=== PATIENT | male | born 1950 | race Two or more races ===

== ENCOUNTER 2025-03-27 08:39 | Emergency (ER) | payer SELFPAY ==
[2025-03-27 08:58] VITALS: BP 184/105
--- NOTE | 2025-03-27 09:06 | EDRN ---
unable to get temp at triage.
[2025-03-27 09:34] LABS: Hematocrit 45.7 % (39.0-52.0); Hemoglobin 16.3 g/dL (13.0-18.0); Mean Corp Hgb Conc. 35.7 g/dL (33.0-37.0); Mean Corpuscular Volume 88.4 fL (80.0-94.0); Nucleated Red Blood Cells % 0 % (-); Platelet Count 161 10^3/uL (130-400); Red Cell Dist. Width 12.2 % (11.5-14.5)
[2025-03-27 09:49] LABS: ALT (SGPT) 39 U/L (0-50); AST (SGOT) 27 U/L (17-59); Albumin 4.6 g/dl (3.5-5.0); Alkaline Phosphatase 111 U/L (38-126); Blood Urea Nitrogen 21 mg/dl (9-20); Calcium 9.7 mg/dl (8.4-10.2); Carbon Dioxide 20 mmol/L (22-30); Chloride 104 mmol/L (98-107); Glucose 272 mg/dl (70-99); Potassium 4.1 mmol/L (3.5-5.1); Sodium 136 mmol/L (135-145); Total Protein 6.9 g/dl (6.3-8.2); eGFR > 60.00
[2025-03-27] MEDS: ZOFRAN 4 MG IV (10:24)
[2025-03-27] MEDS: MORPHINE SULFATE 4 MG IV (10:24)
[2025-03-27 11:24] LABS: Urine Character Clear (Clear)
[2025-03-27 11:40] LABS: Urine Red Blood Cell 50-60 /HPF (0-2)
[2025-03-27] MEDS: TORADOL 15 MG IV (12:36)
--- NOTE | 2025-03-27 17:47 | ED.GENMED ---
History of Present Illness
General
Chief Complaint: Abdominal Pain
Time Seen by Provider: 03/27/25 10:03
History of Present Illness
History of Present Illness:
74-year-old male brought to the ER by his for evaluation of severe pain and nausea. Patient reported severe pain radiating across his lower back and into his anterior abdomen this morning. He denies any prior history of similar discomfort.
He denies any dysuria but did have hematuria and spontaneously passed a stone last week while voiding. He is under the care of a urologist downtown in [place]-he has a referral for an outpatient ultrasound of his scrotum to be performed this
week along with a follow-up appointment scheduled in May. He does have a prior history of BPH and kidney stones. He is on Flomax daily. He took Turkish pain reliever this morning without any improvement in symptoms and subsequent
vomiting. Patient reports his pain to be severe and persistent at time of evaluation.
Phy Exam
Physical Exam
Physical Exam:
Patient is awake, alert, appears uncomfortable, mucous membranes moist, conjunctiva pink, heart regular rate and rhythm no murmurs or ectopy, lungs are clear to auscultation without wheezes rales or rhonchi, abdomen is soft and nontender on
palpation, there is large swelling noted to the left hemiscrotum and left inguinal region which is firm to touch, placing patient in supine position the amount of swelling improved significantly, there is no overlying erythema, positive left CVA
tenderness on exam, extremities without edema, GCS is 15
Course
Orders/Labs/Results
Orders:
Orders
03/27/25 09:20
Complete Blood Count/With Diff Urgent
Comprehensive Metabolic Panel Urgent
03/27/25 10:15
Morphine Sulfate 4 mg IV NOW STA
Ondansetron Injectable [Zofran] 4 mg IV NOW STA
03/27/25 10:17
CT Abd/pel Without Iv Or Oral Urgent
Comment:
Reason For Exam: L flank pain, also large L inguinal hernia
03/27/25 10:32
Urinalysis Reflex To Culture Urgent
Date Specimen was Collected: 03/27/25
Time Specimen was Collected: 10:17
Urine Microscopic Reflex Cult Urgent
Urine Culture Urgent
MARGOTH Source: U
Specimen Description:
Date Specimen was Collected: 03/27/25
Time Specimen was Collected: 10:17
03/27/25 12:13
Ketorolac [Toradol] 15 mg IV NOW STA
Abnormal Lab Results
03/27/25 03/27/25
09:20 10:32
MCH 31.5 H pg
(27.0-31.0)
Absolute Neuts (auto) 7.0 H 10^3/uL
(1.4-6.5)
Neutrophils % 80.5 H %
(42.2-75.2)
Lymphocytes % 13.9 L %
(20.5-51.1)
Carbon Dioxide 20 L mmol/L
(22-30)
BUN 21 H mg/dl
(9-20)
Glucose 272 H mg/dl
(70-99)
Urine Ketones 2+ A
(Negative)
Ur Occult Blood Reflex 4+ A
(Negative)
Leukocyte Esterase Rfl 1+ A
(Negative)
Urine RBC 50-60 A /HPF
(0-2)
Urine Bacteria (Reflex) Few A
(Negative)
Urine Glucose 4+ A
(Negative)
Urine Albumin (Reflex) 2+ A
(Neg - Trace)
03/27/25 09:20
03/27/25 09:20
Urinalysis shows blood, no evidence for infection. White blood count normal. Kidney function preserved.
I reviewed CT results showing 5 mm left ureteral stone and large hydrocele
Vital Signs
Initial and Last Documented VS:
Initial Vital Signs
Pulse Resp BP Pulse Ox
73 16 184/105 99
03/27/25 08:58 03/27/25 08:58 03/27/25 08:58 03/27/25 08:58
Last Documented Vital Signs
Pulse Resp BP Pulse Ox
73 16 184/105 99
03/27/25 08:58 03/27/25 08:58 03/27/25 08:58 03/27/25 08:58
MDM/Problems Addressed
Differential Diagnosis Includes:
Differential diagnosis to consider but not limited to kidney stone, pyelonephritis, gastroenteritis, bowel obstruction along with other etiologies considered
Chronic conditions affecting care:
BPH, kidney stones
*Pulse Oximetry
SaO2: 99
Oxygen Mode of Delivery: Room air
Patient hypoxic: no
*Critical Care Note
Total Time (30-74mins, 75-104mins- exclusive of procedures): Not Applicable
Update Note
Update Note:
Patient feeling much better after Zofran and morphine administration. Once all test result available, I discussed with patient and his present at bedside anticipated passage of stone and need to have close outpatient follow-up with his
urologist for reevaluation and further care. They expressed understanding of medication usage at home. Patient was given dose of Toradol prior to discharge. I advised patient to continue to have ultrasound performed for scrotum for further
evaluation of hydrocele as this had previously been prescribed by his urologist.
ED Attending Note
-
Portions of this chart may have been created with voice recognition software.� Occasional wrong word or��sound alike� substitutions may have occurred due to the inherent limitations of voice recognition software.
Discharge Plan
Departure
Patient Disposition: Home (Routine Discharge)
Date of Disposition: 03/27/25
Time of Disposition: 12:14
Patient with high blood pressure during this ER visit?: No
Condition: Good
Discharge Problem:
Renal colic on left side
Instructions: Hydrocele, Kidney Stones (DC)
Prescriptions:
New
oxycodone-acetaminophen [Percocet] 5-325 mg tablet
1 tab PO Q6HPRN PRN (Reason: pain) Qty: 10 0RF
ondansetron 4 mg tablet,disintegrating
4 mg PO TIDPRN PRN (Reason: nausea/vomiting) Qty: 10 0RF
Referrals:
Radha Castillo CRNP [Family Provider, General]
Activity Restrictions/Additional Instructions:
Please contact your urologist tomorrow to discuss kidney stone as you may need to have an appointment to be seen sooner than May as currently scheduled. Please return to the ER if you are unable to eat or drink, cannot tolerate pain
medication or if you have any other concerns. Please follow-up for your ultrasound on Friday for further evaluation of the swelling in your scrotum, also known as 'hydrocele'
Discharge Date and Time
Print Language: SENEGALESE
== END 2025-03-27 13:00 | disposition home or self-care (01) ==
LOC: EMR 08:39
PROVIDERS: Emergency Medicine; EMERGENCY PHYSICIAN Emergency Medicine; FAMILY PHYSICIAN Nurse Practitioner Adult Health
DX: N23 Unspecified renal colic (principal); R11.0 Nausea; N43.3 Hydrocele, unspecified; N40.0 Benign prostatic hyperplasia without lower urinary tract symptoms; Z87.442 Personal history of urinary calculi; K40.90 Unilateral inguinal hernia, without obstruction or gangrene, not specified as recurrent
CPT/HCPCS: 99284; 96374; 96375 ×2; 74176; 80053; 81003; 81015; 85025; 87086